=== PATIENT | female | born 1970 | race Caucasian/White ===

== ENCOUNTER 2023-02-05 08:40 | Inpatient (IN) | payer BC ==
[~2023-02-05] VITALS: Ht 160 cm; Wt 87.5 kg
[2023-02-05] VITALS (20 sets, daily range): BP systolic 98–136; BP diastolic 62–83; PULSE 56–81; RESP 9–18; TEMP 97.3–97.5; O2SAT 88–100
[2023-02-05 09:27] LABS: BILIRUBIN,URINE NEGATIVE (Neg); CLARITY,URINE CLEAR (Clear); COLOR,URINE YELLOW (Yellow); GLUCOSE, URINE NEGATIVE (Neg); KETONES,URINE NEGATIVE (Neg); LEUKOCYTE ESTERASE ,URINE NEGATIVE (Neg); NITRITES, URINE NEGATIVE (Neg); OCCULT BLOOD,URINE NEGATIVE (Neg); PH,URINE 6.5 (4.8-8.0); PROTEIN,URINE NEGATIVE (Neg); URINE HCG NEGATIVE (NEG); UROBILINOGEN,URINE 0.2 E.U/dL (0.2-1.0)
[2023-02-05 09:50] LABS: BASOPHILS # (AUTO) 0.1 X10'3 (0-0.2); EOSINOPHILS # (AUTO) 0.1 X10'3 (0-0.9); EOSINOPHILS % (AUTO) 0.6 % (0-6); HEMATOCRIT 43.5 % (35.0-45.0); HEMOGLOBIN 14.4 g/dl (12.0-16.0); LYMPHOCYTES # (AUTO) 1.7 X10'3 (1.1-4.8); LYMPHOCYTES % (AUTO) 19.3 % (21-51); MEAN CORPUSCULAR HEMOGLOBIN 31.2 PG (27.0-31.0); MEAN CORPUSCULAR HGB CONC 33.2 g/dL (33.0-36.5); MEAN PLATELET VOLUME 10.7 FL (7.4-10.4); MONOCYTES # (AUTO) 0.5 X10'3 (0-0.9); MONOCYTES % (AUTO) 5.7 % (2-12); NEUTROPHILS # (AUTO) 6.6 X10'3 (1.8-7.7); NEUTROPHILS % (AUTO) 73.4 % (42-75); PLATELET COUNT 215 X10'3 (140-440); RED BLOOD COUNT 4.62 X10'6 (4.20-5.60); RED CELL DISTRIBUTION WIDTH 13.9 % (11.5-14.5)
[2023-02-05 09:51] LABS: UA COLLECTION TYPE CLN CATCH MIDSTREAM
[2023-02-05 10:07] LABS: LARGE PLATELETS FEW; PLATELET ESTIMATE NORMAL
[2023-02-05] MEDS ORDERED: piperacillin/tazo 4.5gm/100ml 100 ML IV STA (10:49)
[2023-02-05 11:50] LABS: ALANINE AMINOTRANSFERASE 20 U/L (12-78); ALBUMIN 3.8 G/DL (3.4-5.0); ALBUMIN/GLOBULIN RATIO 1.1 (1.1-1.5); ALKALINE PHOSPHATASE 70 IU/L (46-116); ANION GAP 10 (8-16); ASPARTATE AMINO TRANSFERASE 15 U/L (10-37); BILIRUBIN,TOTAL 0.4 MG/DL (0.1-1.0); BLOOD UREA NITROGEN 14 MG/DL (7-18); BUN/CREATININE RATIO 19.2 (10.0-20.0); CALCIUM 9.2 MG/DL (8.5-10.1); CHLORIDE 102 MMOL/L (99-107); CREATININE 0.73 MG/DL (0.40-0.90); GLUCOSE 97 MG/DL (70-104); LIPASE 35 U/L (16-77); POTASSIUM 4.1 MMOL/L (3.5-5.1); SODIUM 135 MMOL/L (135-145); TOTAL CARBON DIOXIDE 23.4 MMOL/L (24-32); TOTAL PROTEIN 7.2 G/DL (6.4-8.2); eCRCL 75 ML/MIN; eGFR 84 ML/MIN
[2023-02-05] MEDS ORDERED: morphine 2 MG/ML inj. syringe IV PRN ×2 (12:45→13:50)
[2023-02-05] MEDS ORDERED: magnesium Cl slow-release 64mg tablet PO PRN (12:45)
[2023-02-05] MEDS ORDERED: ondansetron/PF 4mg/2ml inj IV PRN ×2 (12:45→13:50)
[2023-02-05] MEDS ORDERED: magnesium 4gm in 100ml NS 100 ML IV PRN (12:45)
[2023-02-05] MEDS ORDERED: magnesium 2GM in 50ml NS 50 ML IV PRN (12:45)
[2023-02-05] MEDS ORDERED: magnesium hydroxide 30ml (MOM) UD suspension PO PRN (12:45)
[2023-02-05] MEDS ORDERED: potassium Cl 40MEQ/1/2NS 520ml 520 ML IV PRN (12:45)
[2023-02-05] MEDS ORDERED: potassium Cl 20 mEq SR tablet PO PRN ×2 (12:45)
[2023-02-05] MEDS ORDERED: hydrALAZINE 20mg/ml inj. IV PRN (13:50)
[2023-02-05] MEDS ORDERED: ringers solution, lacted 1,000 ML IV SCH ×2 (13:50→18:50)
[2023-02-05] MEDS: normal saline 1000ml 1,000 ML IV SCH ×2 (13:50→23:08)
[2023-02-05] MEDS ORDERED: fentaNYL/PF 50MCG/1 ML 2ML syringe IV PRN ×2 (13:50)
[2023-02-05] MEDS ORDERED: labetalol 20mg/4ml (5mg/ml) syringe IV PRN (13:50)
[2023-02-05] MEDS ORDERED: propofol inj 20 ML IV ONE (14:50)
[2023-02-05] MEDS ORDERED: rocuronium 10mg/ml inj IV ONE (14:50)
[2023-02-05] MEDS ORDERED: dexamethasone sod phosphate 4mg/ml inj. ONE (14:50)
[2023-02-05] MEDS ORDERED: LIDOcaine 2% (20mg/ml) 5ml vial ONE (14:50)
[2023-02-05] MEDS ORDERED: ondansetron/PF 4mg/2ml inj ONE (14:50)
[2023-02-05] MEDS ORDERED: BUPIVAcaine 2.5mg/ml inj 50ml vial (contains preservative) ONE (15:23)
[2023-02-05] MEDS ORDERED: INDOCYANINE GREEN 25 MG/10 ML VIAL IV ONE (16:00)
[2023-02-05] MEDS ORDERED: desflurane 240ml liquid inh. IH ONE (16:10)
[2023-02-05] MEDS ORDERED: midazolam 1 mg/ML 2ml injection ONE (16:11)
[2023-02-05] MEDS ORDERED: fentaNYL/PF 50MCG/1 ML 2ML syringe ONE (16:11)
[2023-02-05] MEDS ORDERED: neostigmine methylsulfate 1 MG/ML 10ml vial ONE (16:29)
[2023-02-05] MEDS ORDERED: glycopyrrolate 0.2mg/ml inj ONE (16:29)
[2023-02-05] MEDS ORDERED: BUPIVAcaine 0.25% w/Epi /PF 30ml vial IJ ONE (16:46)
[2023-02-05] MEDS ORDERED: BUPIVAcaine 0.5% inj/PF 30 ML ONE (16:55)
[2023-02-05] MEDS ORDERED: BUPIVAcaine/PF 5 mg/ml 10ml ONE (16:56)
[2023-02-05] MEDS ORDERED: BUPIVACAINE liposomal/PF 13.3 MG/ML vial IM ONE (16:56)
[2023-02-05] MEDS: HYDROmorphone inj. 0.5 MG/0.5 ML DISP.SYRIN IV PRN ×2 (17:43→23:08)
[2023-02-05] MEDS: morphine 4 MG/ML inj SYRINge IV PRN ×2 (17:49→18:05)
[2023-02-05] MEDS: K and/or MAG REPLACEMENT MC SCH (20:00)
[2023-02-06 01:37] VITALS: BP 111/71; PULSE 71; RESP 14; TEMP 98.2; O2SAT 99
[2023-02-06] MEDS: oxyCODONE/APAP 5-325mg tablet PO PRN ×2 (05:20→11:31)
[2023-02-06 06:00] VITALS: BP 100/58; PULSE 70; RESP 18; TEMP 97.6; O2SAT 96
[2023-02-06 06:41] LABS: BASOPHILS # (AUTO) 0.1 X10'3 (0-0.2); BASOPHILS % (AUTO) 0.8 % (0-1); EOSINOPHILS % (AUTO) 0 % (0-6); HEMOGLOBIN 12.8 g/dl (12.0-16.0); LYMPHOCYTES # (AUTO) 0.5 X10'3 (1.1-4.8); LYMPHOCYTES % (AUTO) 4.8 % (21-51); MEAN CORPUSCULAR HEMOGLOBIN 30.8 PG (27.0-31.0); MEAN CORPUSCULAR HGB CONC 32.8 g/dL (33.0-36.5); MEAN PLATELET VOLUME 10.2 FL (7.4-10.4); MONOCYTES # (AUTO) 0.3 X10'3 (0-0.9); MONOCYTES % (AUTO) 2.3 % (2-12); NEUTROPHILS # (AUTO) 10.5 X10'3 (1.8-7.7); NEUTROPHILS % (AUTO) 92.1 % (42-75); PLATELET COUNT 192 X10'3 (140-440); RED BLOOD COUNT 4.16 X10'6 (4.20-5.60); RED CELL DISTRIBUTION WIDTH 13.7 % (11.5-14.5); WHITE BLOOD COUNT 11.4 X10'3 (4.5-11.0)
[2023-02-06 07:04] LABS: ALANINE AMINOTRANSFERASE 49 U/L (12-78); ALKALINE PHOSPHATASE 67 IU/L (46-116); ANION GAP 9 (8-16); ASPARTATE AMINO TRANSFERASE 54 U/L (10-37); BILIRUBIN,TOTAL 0.4 MG/DL (0.1-1.0); BLOOD UREA NITROGEN 13 MG/DL (7-18); BUN/CREATININE RATIO 15.7 (10.0-20.0); CALCIUM 8.2 MG/DL (8.5-10.1); CHLORIDE 104 MMOL/L (99-107); CREATININE 0.83 MG/DL (0.40-0.90); GLUCOSE 134 MG/DL (70-104); MAGNESIUM 1.7 MG/DL (1.5-2.4); PHOSPHORUS 3.9 MG/DL (2.3-4.5); POTASSIUM 4.3 MMOL/L (3.5-5.1); SODIUM 137 MMOL/L (135-145); TOTAL CARBON DIOXIDE 24.3 MMOL/L (24-32); TOTAL PROTEIN 6.1 G/DL (6.4-8.2); eCRCL 66 ML/MIN; eGFR 72 ML/MIN
[2023-02-06 08:00] VITALS: RESP 18; O2SAT 96
[2023-02-06] MEDS: K and/or MAG REPLACEMENT MC SCH (08:00)
[2023-02-06] MEDS: normal saline 1000ml 1,000 ML IV SCH (08:01)
[2023-02-06 12:31] VITALS: RESP 16
== END 2023-02-06 12:30 | disposition home or self-care (01) | DRG 419 ==
LOC: ER 08:40 → ED HOLD 14:44 → ORTHO 4S 19:35
PROVIDERS: ADMIT Internal Medicine; ATTEND Internal Medicine
PROC: 3E0T3BZ Introduction of Anesthetic Agent into Peripheral Nerves and Plexi, Percutaneous Approach (ICD-10-PCS; 2023-02-05)
PROC: 0FT44ZZ Resection of Gallbladder, Percutaneous Endoscopic Approach (ICD-10-PCS; principal; 2023-02-05 16:10)
DX: K80.00 Calculus of gallbladder with acute cholecystitis without obstruction (principal)
CPT/HCPCS: 96365; 99291; Z7506; Z7508; 36415; 71045; 76700; 80053; 81003; 81025; 83690; 83735; 84100; 85008; 85025; A4215; A4615; A4618; A7000; C9290; G0378; J1100; J1170; J2250; J2270; J2405; J2543; J2704; J2710; J3010; J3490; J7030; J7120; S0020